=== PATIENT | male | born 1930 | race Caucasian/White ===

== ENCOUNTER 2017-04-06 15:41 | Observation (INO) | payer MEDICARE ==
[~2017-04-06] VITALS: Ht 193 cm; Wt 92.6 kg
[~2017-04-06 15:41] MED LIST: ASPI-147 PO; BETA0.1O9 TOPICAL; CENTCHW4 CHEW; FISHCAP4 PO; GLIP-158 PO; PROB1CHW2; TRIA0.5O TOPICAL
[2017-04-06 18:10] VITALS: BP 159/82; PULSE 88; RESP 17; TEMP 97.5; O2SAT 90
[2017-04-06] MEDS ORDERED: GLUCAGON 1 MG/ML VIAL OTHER PRN (19:15)
[2017-04-06] MEDS ORDERED: DEXTROSE 50% IN WATER 50 ML VIAL(D50) IV PRN (19:15)
[2017-04-06] MEDS ORDERED: PROB1TAB4 PO (19:51)
[2017-04-06] MEDS ORDERED: PRAV10TA PO (19:53)
[2017-04-06 20:00] VITALS: BP 145/75; PULSE 80; RESP 18; TEMP 97.5; O2SAT 96
[2017-04-06] MEDS ORDERED: SODIUM CHLORIDE 0.9% FLUSH 10 ML FLUSH IV FLUSH PRN (20:00)
[2017-04-06] MEDS ORDERED: MORPHINE SULFATE 4 MG/ML INJ IV PRN ×3 (20:00)
[2017-04-06] MEDS ORDERED: ONDANSETRON HCL 4 MG/2 ML VIAL IVP PRN (20:00)
[2017-04-06] MEDS ORDERED: NALOXONE HCL 0.4 MG/ML AMP IV PRN (20:00)
[2017-04-06] MEDS ORDERED: METOCLOPRAMIDE HCL 10 MG/2 ML VIAL IV PUSH PRN (20:15)
[2017-04-06] MEDS ORDERED: MINERAL OIL ENEMA 118 ML BTL RECTAL ONE (20:15)
--- NOTE | 2017-04-06 20:17 | HHI.HP ---
HPI Service [facility] Primary Care Physician Unknown Admission Diagnosis Diagnoses: Chief Complaint: constipation Travel History International Travel<30 Days: No Contact w/Intl Traveler <30 Da: No History of Present Illness Written by SILVIA Sanz acting as scribe for Dr. Arroyo] on 04/06/17 at 19 :40. 86 y/o male with a history of DM and HLD presented to the ED with complaints of constipation for 5 days. Patient states he just traveled a long care ride back home and has not been able to have a BM. He was seen at [facility] and was given an enema and stool softeners. He was able to have a small BM there but when he got home he noted to have rectal bleeding so he preceded to the ER. He complains of constant abdominal pressure and bloating sensation in him upper abdomen. He has associated nausea, vomiting and gas. He states he vomited twice today and now is having dry heaves. He also has associated decreased appetite with a weight loss of 4 lbs. He has been unable to take medications by mouth. Denies any heartburn, chest pain, sob, fever or chills. Review of Systems Except as stated in HPI: all other systems reviewed are Neg Past Family Social History Past Medical History DM HLD Past Surgical History Vein repair for venous insufficiency Reported Medications Reported Meds & Active Scripts Active Reported Pravastatin 10 Mg Tab 10 Mg PO DAILY Acidophilus Probiotic (Probiotic Product) 1 Tab Tab 1 Tab PO DAILY Betamethasone Valerate Topical 0.1% Oint 1 Applic TOPICAL BID Triamcinolone Topical 0.5 % Oint 1 Applic TOPICAL BID Glipizide XL (Glipizide) 2.5 Mg Dianne 2.5 Mg PO DAILY Take with breakfast or first main meal of the day Fish Oil + D3 (Fish Oil-Cholecalciferol) 1,200-1,000 Mg-Unit Cap 1 Cap PO DAILY Centrum (Multiple Vitamins W/ Minerals) 1 Chew 1 Tab CHEW DAILY Ecotrin Low Strength (Aspirin) 81 Mg Tabdr 81 Mg PO DAILY Allergies: Coded Allergies: clindamycin (Verified Allergy, Unknown, 04/06/17) Active Ordered Medications Current Medications Medications (Trade) Dose Ordered Sig/Jung Route Start Time Stop Time Status Last Admin (D50w (Vial) Inj) 50 ml UNSCH PRN IV 04/06/17 19:15 (Glucagon Inj) 1 mg UNSCH PRN OTHER 04/06/17 19:15 (NovoLOG SUPPLEMENTAL SCALE) 1 ACHS SLIDING SCALE SQ 04/06/17 21:00 Family History Mom: Breast Cancer Dad: [place], heart disease Social History Denies tobacco use, drinks occasionally and denies illicit drug use. Physical Exam Vital Signs Vital Signs Date Time Temp Pulse Resp B/P (MAP) Pulse Ox O2 Delivery O2 Flow Rate FiO2 04/06/17 18:10 97.5 88 17 159/82 (107) 90 Physical Exam GENERAL: This is a well-nourished, well-developed patient, who appears uncomfortable SKIN: No rashes, ecchymoses or lesions. Cool and dry. HEAD: Atraumatic. Normocephalic. EYES: Pupils equal round and reactive. Extraocular motions intact. ENT: Nose without bleeding, purulent drainage or septal hematoma. Airway patent. NECK: Trachea midline. No JVD or lymphadenopathy. Supple, nontender, no meningeal signs. CARDIOVASCULAR: Regular rate and rhythm without murmurs, gallops, or rubs. RESPIRATORY: Diminished breath sounds equal bilaterally. No wheezes, rales, or rhonchi. GASTROINTESTINAL: Abdomen soft, upper abdominal tenderness, Mildly distended. No guarding. Hypo BS MUSCULOSKELETAL: Extremities without clubbing, cyanosis. Trace edema in BLE. NEUROLOGICAL: Awake and alert. Motor and sensory grossly within normal limits. Normal speech. Caprini VTE Risk Assessment Caprini VTE Risk Assessment: Mod/High Risk (score >= 2) VTE Pharm Contraindication: Hemorrhage Caprini Risk Assessment Model Point Value = 1 Point Value = 2 Point Value = 3 Point Value = 5 Age 41-60 Minor surgery BMI > 25 kg/m2 Swollen legs Varicose veins or History of unexplained or recurrent spontaneous Oral contraceptives or hormone replacement Sepsis (< 1 month) Serious lung disease, including pneumonia (< 1 month) Abnormal pulmonary function Acute myocardial infarction Congestive heart failure (< 1 month) History of inflammatory bowel disease Medical patient at bed rest Age 61-74 Arthroscopic surgery Major open surgery (> 45 min) Laparoscopic surgery (> 45 min) Malignancy Confined to bed (> 72 hours) Immobilizing plaster cast Central venous access Age >= 75 History of VTE Family history of VTE Factor V Leiden Prothrombin [id number] Lupus anticoagulant Anticardiolipin antibodies Elevated serum homocysteine Heparin-induced thrombocytopenia Other congenital or acquired thrombophilia Stroke (< 1 month) Elective arthroplasty Hip, pelvis, or leg fracture Acute spinal cord injury (< 1 month) Prophylaxis Regimen Total Risk Factor Score Risk Level Prophylaxis Regimen 0-1 Low Early ambulation 2 Moderate Order ONE of the following: *Sequential Compression Device (SCD) *Heparin 5000 units SQ BID 3-4 Higher Order ONE of the following medications: *Heparin 5000 units SQ TID *Enoxaparin/Lovenox 40 mg SQ daily (WT < 150 kg, CrCl > 30 mL/min) *Enoxaparin/Lovenox 30 mg SQ daily (WT < 150 kg, CrCl > 10-29 mL/min) *Enoxaparin/Lovenox 30 mg SQ BID (WT < 150 kg, CrCl > 30 mL/min) AND/OR *Sequential Compression Device (SCD) 5 or more Highest Order ONE of the following medications: *Heparin 5000 units SQ TID (Preferred with Epidurals) *Enoxaparin/Lovenox 40 mg SQ daily (WT < 150 kg, CrCl > 30 mL/min) *Enoxaparin/Lovenox 30 mg SQ daily (WT < 150 kg, CrCl > 10-29 mL/min) *Enoxaparin/Lovenox 30 mg SQ BID (WT < 150 kg, CrCl > 30 mL/min) AND *Sequential Compression Device (SCD) Assessment and Plan Problem List: (1) Constipation ICD Code: K59.00 - Constipation, unspecified (2) YINA (acute kidney injury) ICD Code: N17.9 - Acute kidney failure, unspecified Status: Acute (3) Diabetes ICD Code: E11.9 - Type 2 diabetes mellitus without complications Assessment and Plan 86 y/o male with a history of DM and HLD presented to the ED with complaints of constipation for 5 days. Constipation, acute CT completed at [facility] reviewed and shows thickening of the duodenal bulb and small focal outpouching contour of the mucosa of concern for a duodenal bulb ulcer. No mass noted -Mineral oil enema -Consult IR for Gastrografin enema -Consult GI for recommendations -NPO by mouth, IVF for hydration -Antiemetics for nausea -NGT to LIWS if persistent vomiting Acute kidney injury, creatine 1.4, unknown baseline, no history of kidney disease likely secondary to dehydration -Cont IVF as above -Trend creatine , check CK DM, chronic -Accu checks with SSI -Hold home medications for now DVT prophylaxis: SCDs, hold chemical due to rectal bleeding Discussed Condition With Patient, , and RN This note was transcribed by SILVIA Case. I, Dr. Barber Chavez personally performed the history, physical exam, and medical decision making; and confirmed the accuracy of the information in the transcribed note. Authenticated by Dr. Barber Chavez on 04/06/17 at 20:21 Problem Qualifiers (1) Constipation: Qualified Codes: K59.01 - Slow transit constipation (2) Diabetes: Qualified Codes: E11.9 - Type 2 diabetes mellitus without complications Blanche Savage Apr 06, 2017 20:17 Barber Chavez MD Apr 06, 2017 20:22
[2017-04-06] MEDS: SODIUM CHLOR 0.9% 1000 ML INJ 1,000 ML IV SCH (20:37)
[2017-04-06] MEDS: SODIUM CHLORIDE 0.9% FLUSH 10 ML FLUSH IV FLUSH SCH (20:41)
[2017-04-06] MEDS: INSULIN ASPART SUPPLEMENTAL SCALE SQ SCH (20:44)
[2017-04-06] MEDS: BETAMETHASONE DIPROPIONATE 0.05% OINT 15 GM TUBE TOPICAL SCH (20:45)
[2017-04-06] MEDS ORDERED: BETAMETHASONE VALERATE TOPICAL SCH (21:00)
[2017-04-06] MEDS: PANTOPRAZOLE SODIUM 40 MG VIAL IV PUSH SCH (21:54)
[2017-04-07] VITALS (8 sets, daily range): BP systolic 116–147; BP diastolic 59–76; PULSE 80–99; RESP 18–20; TEMP 95.9–98.8; O2SAT 92–98
[2017-04-07] MEDS: INSULIN ASPART SUPPLEMENTAL SCALE SQ SCH ×4 (05:47→20:47)
[2017-04-07] MEDS: SODIUM CHLOR 0.9% 1000 ML INJ 1,000 ML IV SCH ×2 (05:48→16:00)
[2017-04-07 08:15] LABS: AUTOMATED NEUTROPHIL # 8.3 TH/MM3 (1.8-7.7); BASOPHIL % 0.1 % (0.0-2.0); EOSINOPHIL % 0.1 % (0.0-4.0); HEMATOCRIT 42.3 % (39.0-51.0); HEMO FLAGS DIFF FINAL; LYMPH % 10.9 % (9.0-44.0); LYMPHOCYTE # 1.2 TH/MM3 (1.0-4.8); MEAN CELL VOLUME 96.8 FL (80.0-100.0); MEAN CORPUSCULAR HEMOGLOBIN 33.1 PG (27.0-34.0); MEAN CORPUSCULAR HGB CONC 34.2 % (32.0-36.0); MONO % 12.6 % (0.0-8.0); NEUT % 76.3 % (16.0-70.0); PLATELET COUNT 203 TH/MM3 (150-450); RED BLOOD COUNT 4.37 MIL/MM3 (4.50-5.90); RED CELL DISTRIBUTION WIDTH 12.6 % (11.6-17.2); WHITE BLOOD COUNT 10.9 TH/MM3 (4.0-11.0)
[2017-04-07 08:20] LABS: APTT (PATIENT) 27.8 SEC (24.3-30.1); INTERNATIONAL NORMALIZED RATIO 1.2 RATIO
--- NOTE | 2017-04-07 08:20 | HHI.PR ---
Subjective Remarks This is a pleasant 86 y/o Male with DM II, Hyperlipidemia, who came to ER with constipation for five days, he received an Enema and stool softener had a small BM noted rectal bleeding, having dry heaves, seen in the presence of his Mrs. Amina Millan awaiting for recommendations by GI specialist, at this time improving abdominal pain, but easy nausea and vomit, will have Gastrografin Enema, discussed with nurse Miss Barton. Objective Vital Signs Date Time Temp Pulse Resp B/P (MAP) Pulse Ox O2 Delivery O2 Flow Rate FiO2 04/07/17 05:55 97 04/07/17 04:33 97.6 90 18 124/59 (80) 97 04/07/17 00:00 97.9 82 18 130/61 (84) 98 04/06/17 20:00 97.5 80 18 145/75 (98) 96 04/06/17 18:10 97.5 88 17 159/82 (107) 90 Procedures None Other Results Laboratory Tests Test 04/07/17 06:12 Objective Remarks GENERAL: This is a well-nourished, well-developed patient, no acute distress. SKIN: No rashes, ecchymoses or lesions. Cool and dry. HEAD: Atraumatic. Normocephalic. EYES: Pupils equal round and reactive. Extraocular motions intact. ENT: Nose without bleeding, purulent drainage or septal hematoma. Airway patent. NECK: Trachea midline. No JVD or lymphadenopathy. Supple, nontender, no meningeal signs. CARDIOVASCULAR: Regular rate and rhythm without murmurs, gallops, or rubs. RESPIRATORY: Diminished breath sounds equal bilaterally. No wheezes, rales, or rhonchi. GASTROINTESTINAL: Abdomen soft, mild tenderness generalized. positive bowel sounds. MUSCULOSKELETAL: Extremities without clubbing, cyanosis. Trace edema in BLE. NEUROLOGICAL: Awake and alert. Motor and sensory grossly within normal limits. Normal speech. Medications and IVs Current Medications Medications (Trade) Dose Ordered Sig/Jung Route Start Time Stop Time Status Last Admin (D50w (Vial) Inj) 50 ml UNSCH PRN IV 04/06/17 19:15 (Glucagon Inj) 1 mg UNSCH PRN OTHER 04/06/17 19:15 (NovoLOG SUPPLEMENTAL SCALE) 1 ACHS SLIDING SCALE SQ 04/06/17 21:00 (Diprosone 0.05% Ointment) 1 applic BID TOPICAL 04/06/17 21:00 (NS Flush) 2 ml UNSCH PRN IV FLUSH 04/06/17 20:00 (NS Flush) 2 ml BID IV FLUSH 04/06/17 21:00 04/06/17 20:41 (Zofran Inj) 4 mg Q6H PRN IVP 04/06/17 20:00 04/07/17 01:35 (Morphine Inj) 1 mg Q3H PRN IV 04/06/17 20:00 (Morphine Inj) 2 mg Q3H PRN IV 04/06/17 20:00 04/07/17 01:36 (Morphine Inj) 2 mg Q3H PRN IV 04/06/17 20:00 (Narcan Inj) 0.4 mg UNSCH PRN IV 04/06/17 20:00 Sodium Chloride 1,000 ml @ 100 mls/hr Q10H IV 04/06/17 20:00 04/06/17 20:37 (Reglan Inj) 5 mg Q8H PRN IV PUSH 04/06/17 20:15 04/06/17 20:41 (Protonix Inj) 40 mg Q24H IV PUSH 04/06/17 21:00 04/06/17 21:54 A/P Assessment and Plan 86 y/o male with a history of DM and HLD presented to the ED with complaints of constipation for [address] completed at [facility] reviewed and shows thickening of the duodenal bulb and small focal outpouching contour of the mucosa of concern for a duodenal bulb ulcer. No mass noted -Mineral oil enema -Consult IR for Gastrografin enema -Consult GI for recommendations -NPO by mouth, IVF for hydration -Antiemetics for nausea -NGT to LIWS if persistent vomiting Acute kidney injury, creatine 1.4, Improved today, continue IV fluids and continue NPO awaiting for procedure. -follow laboratory. DM, chronic -Accu checks with SSI -Hold home medications for now Mild Hypokalemia replaced by IV. DVT prophylaxis: SCDs, hold chemical due to rectal bleeding Discussed Condition With Patient, His Mrs. Amina Millan, all questions answered to the best of my abilities. Discussed with nurse Miss Barton Discharge Planning Awaiting final by Interventional Radiology and GI specialist. Williams Linton MD Apr 07, 2017 08:20
[2017-04-07] MEDS: SODIUM CHLORIDE 0.9% FLUSH 10 ML FLUSH IV FLUSH SCH ×2 (08:27→20:45)
[2017-04-07 08:41] LABS: ALT (GPT) 23 U/L (12-78); ANION GAP 8 MEQ/L (5-15); AST (GOT) 16 U/L (15-37); BICARBONATE 26.6 MEQ/L (21.0-32.0); BLOOD UREA NITROGEN 36 MG/DL (7-18); CHLORIDE 102 MEQ/L (98-107); GLOMERULAR FILTRATION RATE 62 ML/MIN (>89); POTASSIUM 3.6 MEQ/L (3.5-5.1); SODIUM (NA) 137 MEQ/L (136-145)
[2017-04-07 08:44] LABS: ALKALINE PHOSPHATASE 64 U/L (45-117); TOTAL BILIRUBIN ADULT 1.4 MG/DL (0.2-1.0)
[2017-04-07 08:45] LABS: CREATINE KINASE 85 U/L (39-308)
[2017-04-07] MEDS ORDERED: POTASSIUM CHLOR 20 MEQ PREMIX 100 ML IV ONE (09:30)
[2017-04-07] MEDS ORDERED: DIATRIZOATE MEGLUM/DIATRIZOATE SOD 120 ML BTL (for RAD DIAG) RECTAL ONE (11:35)
--- NOTE | 2017-04-07 12:19 | RADRPT ---
EXAM DATE/TIME: 04/07/2017 11:01 [place] COMPARISON: No previous studies available for comparison. INDICATIONS : Constipation for 5 days, discomfort both lower quadrants FLUORO TIME: 2.3 minutes IMAGE COUNT: 20 CONTRAST: 1. Gastroview MEDICAL HISTORY : constipation x 5 day SURGICAL HISTORY : None. ENCOUNTER: Initial ACUITY: 1 day PAIN SCORE: 3/10 LOCATION: Bilateral abdomen FINDINGS: Preliminary film is unremarkable. Under fluoroscopic guidance a Gastrografin enema was performed with free flow of contrast to the ceca l tip. Copious amount stool. No constricting lesions. Post evacuation radiographs are unremarkable. CONCLUSION: Unremarkable Gastrografin enema. Gabe Tamez MD on April 07, 2017 at 12:17 Board Certified Radiologist. This report was verified electronically.
--- NOTE | 2017-04-07 12:38 | PD.CONS ---
HPI History of Present Illness This is a 86 year old male with a history of diabetes and hyperlipidemia, who presented to the emergency room for severe constipation with no bowel movement x 5 days. He reports a long history of mild constipation that he usually controls with probiotics, high fiber diet, and exercise. He recently had a prolonged road trip, where he traveled to [place], [place], [place], and [place] x a month. While he was traveling, he was frequently eating out and not getting his normal amount of fiber. He was also not exercising for the past month. He had severe constipation with abdominal bloating and discomfort. He went to [facility] and was instructed to take stool softeners, enema , and suppositories. He went home and tried the enema/suppositories, but only passed a small amount of stool. He noticed that he had a scant amount of bright red blood on the tissue paper. He reports that he has been having worsening discomfort with associated bloating, nausea, and vomiting and therefore returned to the ER. KUB (04/06/17)----> Normal abdominal gas pattern with no air fluid levels seen. He then went for a Gastrografin enema (04/07/17)- --> Copious amount of stool, Unremarkable gastrografin enema with no constricting lesions. He states that since the gastrografin enema, he has passed a large amount of liquid and formed stool and is feeling much better. He is no longer having any nausea, vomiting, bloating, or pain. His last colonoscopy was 10 years ago. I did discuss with patient and possible evaluation with colonoscopy, given his bright red blood on tissue and change in bowels. They are not really wanting to pursue this at this time, but will consider as outpatient. (Lillian Willingham) PFSH Past Medical History Diabetes Hyperlipidemia Constipation Remote hx of colon polyps Past Surgical History Vein repair for venous insufficiency Colonoscopy (Lillian Willingham) Coded Allergies: clindamycin (Verified Allergy, Unknown, 04/06/17) Medications Allergies Coded Allergies Type Severity Reaction Last Updated Verified clindamycin Allergy Unknown 04/06/17 Yes Active Scripts Medications Dose Route/Sig Max Daily Dose Days Date Category Dose Instructions Pravastatin 10 Mg Tab 10 Mg PO DAILY 04/06/17 Reported Acidophilus Probiotic (Probiotic Product) 1 Tab Tab 1 Tab PO DAILY 04/06/17 Reported Betamethasone Valerate Topical 0.1% Oint 1 Applic TOPICAL BID 04/06/17 Reported Triamcinolone Topical 0.5 % Oint 1 Applic TOPICAL BID 04/06/17 Reported Glipizide XL (Glipizide) 2.5 Mg Dianne 2.5 Mg PO DAILY 04/06/17 Reported Take with breakfast or first main meal of the day Fish Oil + D3 (Fish Oil-Cholecalciferol) 1,200-1,000 Mg-Unit Cap 1 Cap PO DAILY 04/06/17 Reported Centrum (Multiple Vitamins W/ Minerals) 1 Chew 1 Tab CHEW DAILY 04/06/17 Reported Ecotrin Low Strength (Aspirin) 81 Mg Tabdr 81 Mg PO DAILY 04/06/17 Reported Family History Mom: Breast Cancer Dad: [place], heart disease Social History Denies tobacco use, drinks occasionally and denies illicit drug use. (Lillian Willingham) Review of Systems Constitutional: COMPLAINS OF: Fatigue, DENIES: Weight loss, Change in appetite Respiratory: DENIES: Cough, Shortness of breath Cardiovascular: DENIES: Chest pain Gastrointestinal: COMPLAINS OF: Abdominal pain, Bloody stools (BRBPR), Constipation, Nausea, Vomiting, Swelling of Abdomen, DENIES: Black stools, Diarrhea, Difficulty Swallowing, Heartburn Hematologic/lymphatic: DENIES: Bruising Neurologic: DENIES: Headache Psychiatric: DENIES: Confusion (Lillian Willingham) GI Exam Vitals I&O Vital Signs Date Time Temp Pulse Resp B/P (MAP) Pulse Ox O2 Delivery O2 Flow Rate FiO2 04/07/17 08:00 97.6 80 18 121/63 (82) 92 04/07/17 05:55 97 04/07/17 04:33 97.6 90 18 124/59 (80) 97 04/07/17 00:00 97.9 82 18 130/61 (84) 98 04/06/17 20:00 97.5 80 18 145/75 (98) 96 04/06/17 18:10 97.5 88 17 159/82 (107) 90 Imaging KUB (04/06/17)----> Normal abdominal gas pattern with no air fluid levels seen Gastrografin enema (04/07/17)---> Copious amount of stool, Unremarkable gastrografin enema with no constricting lesions. Laboratory Test 04/07/17 06:12 White Blood Count 10.9 TH/MM3 Red Blood Count 4.37 MIL/MM3 Hemoglobin 14.5 GM/DL Hematocrit 42.3 % Mean Corpuscular Volume 96.8 FL Mean Corpuscular Hemoglobin 33.1 PG Mean Corpuscular Hemoglobin Concent 34.2 % Red Cell Distribution Width 12.6 % Platelet Count 203 TH/MM3 Mean Platelet Volume 8.1 FL Neutrophils (%) (Auto) 76.3 % Lymphocytes (%) (Auto) 10.9 % Monocytes (%) (Auto) 12.6 % Eosinophils (%) (Auto) 0.1 % Basophils (%) (Auto) 0.1 % Neutrophils # (Auto) 8.3 TH/MM3 Lymphocytes # (Auto) 1.2 TH/MM3 Monocytes # (Auto) 1.4 TH/MM3 Eosinophils # (Auto) 0.0 TH/MM3 Basophils # (Auto) 0.0 TH/MM3 CBC Comment DIFF FINAL Differential Comment Prothrombin Time 13.0 SEC Prothromb Time International Ratio 1.2 RATIO Activated Partial Thromboplast Time 27.8 SEC Blood Urea Nitrogen 36 MG/DL Creatinine 1.13 MG/DL Random Glucose 126 MG/DL Total Protein 6.4 GM/DL Albumin 3.0 GM/DL Calcium Level 8.8 MG/DL Alkaline Phosphatase 64 U/L Aspartate Amino Transf (AST/SGOT) 16 U/L Alanine Aminotransferase (ALT/SGPT) 23 U/L Total Bilirubin 1.4 MG/DL Sodium Level 137 MEQ/L Potassium Level 3.6 MEQ/L Chloride Level 102 MEQ/L Carbon Dioxide Level 26.6 MEQ/L Anion Gap 8 MEQ/L Estimat Glomerular Filtration Rate 62 ML/MIN Total Creatine Kinase 85 U/L Physical Examination HEENT: Normocephalic; atraumatic; no jaundice. CHEST: CTA CARDIAC: RRR ABDOMEN: SOFT, nondistended, nontender; no hepatosplenomegaly; bowel sounds are present in all four quadrants. EXTREMITIES: No clubbing, cyanosis, or edema. SKIN: Normal; no rash; no jaundice. PROFESSOR OF LANGUAGES: No focal deficits; alert and oriented times three. (Lillian Willingham) Assessment and Plan Plan ASSESSMENT: - Severe constipation, likely related to recent travel with decreased fiber intake and decreased activity. He has chronic constipation, controlled with high fiber diet, probiotics, and exercise S/P recent prolonged road trip, where he traveled to [place], [place], [place], and [place] x a month. While he was traveling, he was frequently eating out and not getting his normal amount of fiber and was not going to the gym. He developed severe constipation with n/v/pain/bloating. S/P stool softeners, suppositories, enema- very small hard stool, scant amount of BRBPR on tissue. KUB (04/06/17)--- -> Normal abdominal gas pattern with no air fluid levels seen. S/P Gastrografin enema (04/07/17)---> Copious amount of stool, Unremarkable gastrografin enema with no constricting lesions. He states that since the gastrografin enema, he has passed a large amount of liquid and formed stool and is feeling much better- no longer having. Last colonoscopy was 10 years ago. I did discuss with patient and possible evaluation with colonoscopy, given his bright red blood on tissue and change in bowels. They are not really wanting to pursue this at this time, but will consider as outpatient. - BRBPR x 1. Pt has scant amount of BRBPR after straining to move his bowels. No further episodes. HH stable. - N/V, Abdominal pain. RESOLVED after having large bowel movement. - Hyperlipidemia, DM per attending PLAN: - Clear liquids- Advance diet as tolerated - Colace 100mg po BID - Miralax 17gram po daily - KUB in am - Pt will consider colonoscopy as outpatient- does not want to pursue at this time - Pt seen and examined by Dr. Brooks and myself and this note is written on his behalf (Lillian Willingham) Physician Comments Seen and examined, plan as above, will recheck X-Ray in AM Will follow up with you. (Arianne Brooks MD) Lillina Willingham Apr 07, 2017 12:38 Arianne Brooks MD Apr 07, 2017 18:27
[2017-04-07] MEDS: DOCUSATE SODIUM 100 MG CAP PO SCH ×2 (13:00→20:44)
[2017-04-07] MEDS: POLYETHYLENE GLYCOL 17 GM PKG PO SCH (13:00)
[2017-04-07] MEDS: BETAMETHASONE DIPROPIONATE 0.05% OINT 15 GM TUBE TOPICAL SCH ×2 (13:11→20:50)
[2017-04-07] MEDS: PANTOPRAZOLE SODIUM 40 MG VIAL IV PUSH SCH (20:44)
[2017-04-08] VITALS: BP 121/62; PULSE 81; RESP 17; TEMP 96; O2SAT 95
[2017-04-08] MEDS: SODIUM CHLOR 0.9% 1000 ML INJ 1,000 ML IV SCH ×4 (02:30→13:25)
[2017-04-08 05:20] LABS: AUTOMATED NEUTROPHIL # 5.7 TH/MM3 (1.8-7.7); BASOPHIL % 0.5 % (0.0-2.0); EOSINOPHIL # 0.1 TH/MM3 (0-0.4); EOSINOPHIL % 0.7 % (0.0-4.0); HEMATOCRIT 39.7 % (39.0-51.0); HEMO FLAGS DIFF FINAL; LYMPH % 15.3 % (9.0-44.0); LYMPHOCYTE # 1.2 TH/MM3 (1.0-4.8); MEAN CELL VOLUME 97.5 FL (80.0-100.0); MEAN CORPUSCULAR HEMOGLOBIN 32.7 PG (27.0-34.0); MEAN CORPUSCULAR HGB CONC 33.5 % (32.0-36.0); MONO % 12.1 % (0.0-8.0); NEUT % 71.4 % (16.0-70.0); PLATELET COUNT 185 TH/MM3 (150-450); RED BLOOD COUNT 4.07 MIL/MM3 (4.50-5.90); RED CELL DISTRIBUTION WIDTH 12.7 % (11.6-17.2); WHITE BLOOD COUNT 7.9 TH/MM3 (4.0-11.0)
[2017-04-08 05:48] LABS: BICARBONATE 22.6 MEQ/L (21.0-32.0); MAGNESIUM 2.1 MG/DL (1.5-2.5); POTASSIUM 3.6 MEQ/L (3.5-5.1)
[2017-04-08] MEDS: INSULIN ASPART SUPPLEMENTAL SCALE SQ SCH ×2 (06:07→11:00)
[2017-04-08 08:00] VITALS: BP 118/65; PULSE 72; RESP 16; TEMP 97.5; O2SAT 92
[2017-04-08] MEDS: DOCUSATE SODIUM 100 MG CAP PO SCH (08:29)
[2017-04-08] MEDS: BETAMETHASONE DIPROPIONATE 0.05% OINT 15 GM TUBE TOPICAL SCH (08:29)
[2017-04-08] MEDS: POLYETHYLENE GLYCOL 17 GM PKG PO SCH (08:29)
[2017-04-08] MEDS: SODIUM CHLORIDE 0.9% FLUSH 10 ML FLUSH IV FLUSH SCH (08:29)
[2017-04-08] MEDS ORDERED: POLY17S PO (11:24)
[2017-04-08] MEDS ORDERED: DOCU1CAP39 PO (11:24)
[2017-04-08] MEDS ORDERED: FAMO40TA PO (11:26)
--- NOTE | 2017-04-08 11:31 | HHI.DS ---
Discharge Summary Admission Date Apr 06, 2017 at 18:06 Discharge Date: Apr 08, 2017 Admitting Diagnosis (1) Constipation ICD Code: K59.00 - Constipation, unspecified (2) YINA (acute kidney injury) ICD Code: N17.9 - Acute kidney failure, unspecified Status: Acute (3) Diabetes ICD Code: E11.9 - Type 2 diabetes mellitus without complications Procedures Gastrografin enema Brief History - From Admission History of present illness from the admitting physician 86 y/o male with a history of DM and HLD presented to the ED with complaints of constipation for 5 days. Patient states he just traveled a long care ride back home and has not been able to have a BM. He was seen at [facility] and was given an enema and stool softeners. He was able to have a small BM there but when he got home he noted to have rectal bleeding so he preceded to the ER. He complains of constant abdominal pressure and bloating sensation in him upper abdomen. He has associated nausea, vomiting and gas. He states he vomited twice today and now is having dry heaves. He also has associated decreased appetite with a weight loss of 4 lbs. He has been unable to take medications by mouth. Denies any heartburn, chest pain, sob, fever or chills. CBC/BMP: 04/08/17 0437 04/08/17 0437 Significant Findings Laboratory Tests Test 04/07/17 06:12 04/08/17 04:37 Red Blood Count 4.37 MIL/MM3 (4.50-5.90) 4.07 MIL/MM3 (4.50-5.90) Neutrophils (%) (Auto) 76.3 % (16.0-70.0) 71.4 % (16.0-70.0) Monocytes (%) (Auto) 12.6 % (0.0-8.0) 12.1 % (0.0-8.0) Neutrophils # (Auto) 8.3 TH/MM3 (1.8-7.7) Monocytes # (Auto) 1.4 TH/MM3 (0-0.9) 1.0 TH/MM3 (0-0.9) Prothrombin Time 13.0 SEC (9.8-11.6) Blood Urea Nitrogen 36 MG/DL (7-18) 32 MG/DL (7-18) Random Glucose 126 MG/DL (74-106) 118 MG/DL (74-106) Albumin 3.0 GM/DL (3.4-5.0) Total Bilirubin 1.4 MG/DL (0.2-1.0) Estimat Glomerular Filtration Rate 62 ML/MIN (>89) 68 ML/MIN (>89) Calcium Level 8.0 MG/DL (8.5-10.1) Chloride Level 108 MEQ/L (98-107) Imaging Last Impressions Enema w/Water Soluble 04/07/17 0000 Signed Impressions: Service Date/Time: Friday, April 07, 2017 11:01 - CONCLUSION: Unremarkable Gastrografin enema. Gabe Tamez MD PE at Discharge GENERAL: This is a well-nourished, well-developed patient, in no apparent distress. CARDIOVASCULAR: Normal rate and regular rhythm without murmurs, gallops, or rubs. RESPIRATORY: Good respiratory efforts. Breath sounds equal and clear to auscultation bilaterally. GASTROINTESTINAL: Abdomen soft, non-tender, non-distended. Normal active bowel sounds MUSCULOSKELETAL: Extremities without cyanosis, or edema. NEURO: Alert & Oriented x4 to person, place, time, situation. Moves all ext x4 PSYCH: Appropriate mood and affect. Pt update on day of discharge Patient had a large BM this morning. He is feeling much better. No nausea or vomiting. Hospital Course 86 y/o male with a history of DM and HLD presented to the ED with complaints of constipation for 5 days. Evaluation and treatment course detailed below: Fecal Impaction CT completed at [facility] reviewed and shows thickening of the duodenal bulb and small focal outpouching contour of the mucosa of concern for a duodenal bulb ulcer. No mass noted. The patient was seen by GI. Underwent Gastrografin enema which was unremarkable. The patient later had multiple large bowel movements. His symptoms resolved. He is discharged on a bowel regimen to include Colace twice a day and Maalox as needed. He was offered colonoscopy but he opted to have that done outpatient. Acute kidney injury, creatine 1.4, likely secondary to above. Resolved with IV fluid. DM, chronic -Accu checks with SSI -Home medications were held. There were resumed on discharge. Mild Hypokalemia: This was replaced. Pt Condition on Discharge: Good Discharge Disposition: Discharge Home Discharge Time: <= 30 minutes Discharge Instructions DIET: Follow Instructions for: Diabetic Diet Activities you can perform: Regular-No Restrictions Follow up Referrals: Gastroenterology - 1 Week New Medications: Famotidine (Famotidine) 40 Mg Tab 40 MG PO BID, #60 TAB 0 Refills Docusate Sodium (Dok) 100 Mg Cap 100 MG PO BID for 30 Days, CAP Polyethylene Glycol 3350 Powder (Polyethylene Glycol 3350 Powder) 17 Gm Pow 17 GM PO DAILY PRN for CONSTIPATION for 30 Days Continued Medications: Aspirin DR (Ecotrin Low Strength) 81 Mg Tabdr 81 MG PO DAILY, #30 TAB 0 Refills Betamethasone Valerate Topical (Betamethasone Valerate Topical) 0.1% Oint 1 APPLIC TOPICAL BID for Dermatoses, #15 GM 0 Refills Fish Oil-Cholecalciferol (Fish Oil + D3) 1,200-1,000 Mg-Unit Cap 1 CAP PO DAILY for Nutritional Supplement, #30 CAP 0 Refills Glipizide ER (Glipizide XL) 2.5 Mg Dianne 2.5 MG PO DAILY for Blood Sugar Management, #30 TAB 0 Refills Take with breakfast or first main meal of the day Multiple Vitamins W/ Minerals (Centrum) 1 Chew 1 TAB CHEW DAILY for Nutritional Supplement, TAB 0 Refills Pravastatin (Pravastatin) 10 Mg Tab 10 MG PO DAILY for Cholesterol Management, #30 TAB 0 Refills Probiotic Product (Acidophilus Probiotic) 1 Tab Tab 1 TAB PO DAILY Triamcinolone Topical (Triamcinolone Topical) 0.5 % Oint 1 APPLIC TOPICAL BID for Inflammation, #15 GM 0 Refills Anne-Marie Fox MD Apr 08, 2017 11:31
--- NOTE | 2017-04-08 11:31 | HHI.DCPOC ---
Discharge Care Plan Diagnosis: (1) Constipation (2) Diabetes Goals to Promote Your Health * To prevent worsening of your condition and complications * To maintain your health at the optimal level Directions to Meet Your Goals Take your medications as prescribed Follow your dietary instruction Follow activity as directed Keep your appointments as scheduled Take your immunizations and boosters as scheduled If your symptoms worsen call your PCP, if no PCP go to Urgent Care Center or Emergency Room Smoking is Dangerous to Your Health. Avoid second hand smoke Call the 24-hour hour crisis hotline for domestic abuse at Anne-Marie Fox MD Apr 08, 2017 11:31
[2017-04-08 12:00] VITALS: BP 131/76; PULSE 77; RESP 16; TEMP 98.1; O2SAT 93
== END 2017-04-08 15:13 | disposition home or self-care (01) ==
LOC: NEDDLT 17:56 → INTOOBSV 18:06 → N07A 18:06
PROVIDERS: ADMIT Family Medicine; ATTEND Family Medicine
DX: K59.01 Slow transit constipation (principal); N17.9 Acute kidney failure, unspecified; E11.9 Type 2 diabetes mellitus without complications; E78.5 Hyperlipidemia, unspecified; E87.6 Hypokalemia; E86.0 Dehydration; Z86.010 Personal history of colon polyps; Z79.84 Long term (current) use of oral hypoglycemic drugs
CPT/HCPCS: 74020; 74270; 80048; 80053; 82272; 82550; 82948; 83735; 85025; 85610; 85730; 96374; 96375; 97163; 99285; C9113; G0378; J2270; J2405; J2765; J3480; J7030; J7040; Q9963